=== PATIENT | female | born 1995 | race Caucasian/White ===

== ENCOUNTER → 2017-05-21 | Outpatient (CLI) | payer BC | LOC: BMCIMAGING 14:28 | PROVIDERS: ATTEND Internal Medicine | DX: J40 Bronchitis, not specified as acute or chronic (principal) ==

== ENCOUNTER 2017-05-22 11:00 | Emergency (ER) | payer BC ==
[2017-05-22 11:10] VITALS: O2SAT 95
--- NOTE | 2017-05-22 12:08 | EDPHY ---
H & P Time Seen by Provider: 05/22/17 11:52 HPI/ROS: CHIEF COMPLAINT: Shaky, weakness, fatigue HISTORY OF PRESENT ILLNESS: This 21-year-old woman presents with symptoms worsening over the past week. Of note she had a rash since our provider in [place] in mid March was treated with steroid cream. She developed hives just before flying to [place] and then developed a cough and felt wheezy since the 11 of May. Subsequently she has felt she sweaty and weak over the past week, saw Dr. Salazar at [facility] yesterday and was treated with Zithromax and albuterol and prednisone for bronchitis. She presents today because her mother has a history of Graves disease and she is worried about her thyroid. REVIEW OF SYSTEMS: Eye: no change in vision ENT: no sore throat Cardiac: no chest pain or syncope Pulmonary: Cough for the past 2 weeks. Abdomen: Vomiting on May 11 with abdominal pain and last night. No diarrhea and no abdominal pain today. Musculoskeletal: no back pain Skin: Intermittent rash now mostly in her groin area as described in HPI Neuro: no headache Constitutional: no fever, 15 lb weight loss in the past 3 weeks. : no urinary symptoms A comprehensive 10 point review of systems is otherwise negative aside from elements mentioned in the history of present illness. PAST MEDICAL HISTORY: Fluoxetine for anxiety and depression, open-heart surgery at 8 years old for valve problem Social history: occasional alcohol, nonsmoker. No IV drugs. General Appearance: Alert and conversant, cooperative. Eyes: No scleral icterus. ENT, Mouth: Normal mucous membranes. Normal pharynx. Respiratory: Some bilateral expiratory wheezing, otherwise lungs clear, speaks in full sentences. Cardiovascular: Regular rate and rhythm. No murmur. Gastrointestinal: Abdomen is soft and non tender. Neurological: Alert and oriented x3. Normally conversant. Face symmetric, normal movement and sensation in all extremities. Skin: Very faint papular rash on upper thighs and groin bilaterally, no vesicles, no petechiae or purpura. Musculoskeletal: No peripheral edema and no joint swelling. No calf tenderness. Psychiatric: Not agitated. Emergency Department course/MDM: The chest x-ray performed yesterday at 2:[address] Abdullahi reviewed as no pneumonia. Plan for labs to include TSH, D-dimer, CBC and chemistry. My pretest clinical suspicion for pulmonary embolism is low. 1330: Results discussed, patient encouraged to continue with her current treatment and follow up with her primary care doctor for evaluation of her symptoms. Does not appear have severe hyperthyroidism today. Smoking Status: Never smoked Constitutional: Initial Vital Signs Temperature (C) 36.9 C 05/22/17 11:07 Heart Rate 90 05/22/17 11:07 Respiratory Rate 20 05/22/17 11:07 Blood Pressure 151/94 H 05/22/17 11:07 O2 Sat (%) 95 05/22/17 11:07 O2 Delivery Mode Room Air Allergies/Adverse Reactions: No Known Allergies Allergy (Unverified 05/22/17 11:07) Home Medications: Medication Instructions Recorded Prednisone 05/22/17 Medical Decision Making - Diagnostics EKG Interpretation: 12-lead EKG interpreted by me; official reading is in trace master. My interpretation is sinus rhythm rate 66 with incomplete right bundle branch block and left anterior fascicular block. Differential Diagnosis: Differential for shaking and weakness considered including but not limited to cardiac dysrhythmia, hyperthyroid, diabetes, other metabolic, venous thromboembolism, - Data Points Laboratory Results: Laboratory Results 05/22/17 12:30 05/22/17 12:30 05/22/17 05/22/17 05/22/17 12:30 12:30 12:30 WBC RBC Hgb Hct MCV MCH MCHC RDW Plt Count MPV Neut % (Auto) Lymph % (Auto) Trigg % (Auto) Eos % (Auto) Baso % (Auto) Nucleat RBC Rel Count Absolute Neuts (auto) Absolute Lymphs (auto) Absolute Monos (auto) Absolute Eos (auto) Absolute Basos (auto) Absolute Nucleated RBC Immature Gran % Immature Gran # D-Dimer < 0.27 ug/mLFEU ug/mLFEU (0.00-0.50) Sodium 141 mEq/L mEq/L (134-144) Potassium 3.8 mEq/L mEq/L (3.5-5.2) Chloride 107 mEq/L mEq/L (97-110) Carbon Dioxide 23 mEq/l mEq/l (22-31) Anion Gap 11 mEq/L mEq/L (8-16) BUN 11 mg/dL mg/dL (7-23) Creatinine 0.7 mg/dL mg/dL (0.6-1.0) Estimated GFR > 60 Glucose 87 mg/dL mg/dL (70-100) Calcium 9.5 mg/dL mg/dL (8.5-10.4) TSH 0.783 uIU/mL uIU/mL (0.465-4.680) Beta HCG, Qual NEGATIVE 05/22/17 12:30 WBC 4.55 10^3/uL 10^3/uL (3.80-9.50) RBC 3.96 10^6/uL L 10^6/uL (4.18-5.33) Hgb 12.1 g/dL L g/dL (12.6-16.3) Hct 36.0 % L % (38.0-47.0) MCV 90.9 fL fL (81.5-99.8) MCH 30.6 pg pg (27.9-34.1) MCHC 33.6 g/dL g/dL (32.4-36.7) RDW 12.2 % % (11.5-15.2) Plt Count 303 10^3/uL 10^3/uL (150-400) MPV 9.7 fL fL (8.7-11.7) Neut % (Auto) 67.7 % % (39.3-74.2) Lymph % (Auto) 22.6 % % (15.0-45.0) Trigg % (Auto) 7.0 % % (4.5-13.0) Eos % (Auto) 1.8 % % (0.6-7.6) Baso % (Auto) 0.7 % % (0.3-1.7) Nucleat RBC Rel Count 0.0 % % (0.0-0.2) Absolute Neuts (auto) 3.08 10^3/uL 10^3/uL (1.70-6.50) Absolute Lymphs (auto) 1.03 10^3/uL 10^3/uL (1.00-3.00) Absolute Monos (auto) 0.32 10^3/uL 10^3/uL (0.30-0.80) Absolute Eos (auto) 0.08 10^3/uL 10^3/uL (0.03-0.40) Absolute Basos (auto) 0.03 10^3/uL 10^3/uL (0.02-0.10) Absolute Nucleated RBC 0.00 10^3/uL 10^3/uL (0-0.01) Immature Gran % 0.2 % % (0.0-1.1) Immature Gran # 0.01 10^3/uL 10^3/uL (0.00-0.10) D-Dimer Sodium Potassium Chloride Carbon Dioxide Anion Gap BUN Creatinine Estimated GFR Glucose Calcium TSH Beta HCG, Qual Departure - Departure Disposition: Home, Routine, Self-Care Clinical Impression: Fatigue Qualifiers: Fatigue type: unspecified Qualified Code(s): R53.83 - Other fatigue Condition: Good Instructions: Fatigue (ED) Additional Instructions: Chest x-ray read and radiology did not interpret as pneumonia. Blood test did not indicate Graves disease. Blood test did not indicate high likelihood for pulmonary embolism or blood clot in your lung. Referrals: Maribel Salazar MD [Primary Care Provider] - As per Instructions
[2017-05-22 12:39] LABS: % IMMATURE GRANULYOCYTES 0.2 % (0.0-1.1); ABSOLUTE IMMATURE GRANULOCYTES 0.01 10^3/uL (0.00-0.10); ADD DIFF? NO; ADD MORPH? NO; ADD SCAN? NO; ATYPICAL LYMPHOCYTE FLAG 20 (0-99); FRAGMENT RBC FLAG 0 (0-99); HEMOGLOBIN 12.1 g/dL (12.6-16.3); LEFT SHIFT FLG 0 (0-99); LIPEMIA HEMOLYSIS FLAG 80 (0-99); MEAN CELL HEMOGLOBIN 30.6 pg (27.9-34.1); MEAN CELL HEMOGLOBIN CONCENTR. 33.6 g/dL (32.4-36.7); MEAN CELL VOLUME 90.9 fL (81.5-99.8); MEAN PLATELET VOLUME 9.7 fL (8.7-11.7); PLATELET CLUMPS FLAG 0 (0-99); PLATELET COUNT 303 10^3/uL (150-400); RED BLOOD CELL COUNT 3.96 10^6/uL (4.18-5.33); RED CELL DISTRIBUTION WIDTH 12.2 % (11.5-15.2)
[2017-05-22 12:56] LABS: ANION GAP 11 mEq/L (8-16); CALCIUM 9.5 mg/dL (8.5-10.4); CARBON DIOXIDE 23 mEq/l (22-31); CHLORIDE 107 mEq/L (97-110); CREATININE 0.7 mg/dL (0.6-1.0); GLOMERULAR FILTRATION RATE > 60; GLUCOSE 87 mg/dL (70-100); POTASSIUM 3.8 mEq/L (3.5-5.2); SODIUM 141 mEq/L (134-144)
--- NOTE | 2017-05-22 13:07 | CPEKG ---
Heart Rate: 66 RR Interval: 909 P-R Interval: 156 QRSD Interval: 106 QT Interval: 452 QTC Interval: 474 P [place]: -24 QRS [place]: -43 T Wave [place]: 12 EKG Severity - ABNORMAL ECG - EKG Impression: SINUS RHYTHM EKG Impression: INCOMPLETE RBBB AND LAFB Electronically Signed By: Jorge Leger 22-May-2017 13:23:06
[2017-05-22 13:45] VITALS: BP 118/72; PULSE 71; RESP 16; TEMP 99
== END 2017-05-22 13:48 | disposition home or self-care (01) ==
DX: R53.83 Other fatigue (principal)